=== PATIENT | male | born 1965 | race Caucasian/White ===

== ENCOUNTER 2022-11-14 13:19 | Outpatient (CLI) | payer OTHER ==
[~2022-11-14 13:19] MED LIST: VITAMINAS
== END 2022-11-14 13:35 | disposition home or self-care (01) ==
LOC: RAD 13:19
PROVIDERS: ATTEND Orthopaedic Surgery
DX: M16.0 Bilateral primary osteoarthritis of hip (principal)

== ENCOUNTER 2023-04-25 10:38 | Outpatient (CLI) | payer OTHER | END 2023-04-25 10:46 | disposition home or self-care (01) | LOC: RAD 10:38 | PROVIDERS: ATTEND Orthopaedic Surgery | DX: Q65.89 Other specified congenital deformities of hip (principal); M25.851 Other specified joint disorders, right hip; M25.852 Other specified joint disorders, left hip ==

== ENCOUNTER 2023-07-16 10:54 | Outpatient (CLI) | payer OTHER | END 2023-07-16 11:02 | disposition home or self-care (01) | LOC: RAD 10:54 | PROVIDERS: ATTEND Orthopaedic Surgery | DX: Q65.89 Other specified congenital deformities of hip (principal); M25.851 Other specified joint disorders, right hip; M25.852 Other specified joint disorders, left hip; Z88.6 Allergy status to analgesic agent ==

== ENCOUNTER 2023-08-28 11:31 | Emergency (ER) | payer OTHER ==
[~2023-08-28] VITALS: Ht 177.8 cm; Wt 81.6 kg
[2023-08-28] MEDS ORDERED: POLYMYXIN B/TMP10 ML OP (15:09)
== END 2023-08-28 15:20 | disposition home or self-care (01) ==
LOC: ER 11:31
DX: H10.33 Unspecified acute conjunctivitis, bilateral (principal); Z88.6 Allergy status to analgesic agent; Z91.013 Allergy to seafood

== ENCOUNTER 2024-05-23 14:17 | Outpatient (CLI) | payer OTHER ==
[~2024-05-23 14:17] MED LIST changes: +POLYMYXIN B/TMP10 ML OP
== END 2024-05-23 14:37 | disposition home or self-care (01) ==
LOC: RAD 14:17
DX: Q65.89 Other specified congenital deformities of hip (principal); M25.851 Other specified joint disorders, right hip; M25.852 Other specified joint disorders, left hip